=== PATIENT | female | born 1950 | race Caucasian/White ===

== ENCOUNTER 2017-05-03 11:10 | Outpatient (CLI) | payer MEDICARE, BC ==
--- NOTE | 2017-05-11 16:30 | Electroencephalogram ---
DATE OF PROCEDURE: 05/03/2017 ELECTROENCEPHALOGRAPHY REPORT READING PHYSICIAN: Bora Benitez M.D. HISTORY: This is a 66-year-old female with a history of chronic seizure disorder, maintained on phenobarbital. EEG was done using 18 electrodes placed scalp to scalp, scalp to ear montages according to 10/[employer] System. During recording, the patient described as being "alert, good cooperation, and normal mentality." In the predominantly awake stages, background activity consists of well organized at 9 cycles per second medium voltage alpha activities with good response to physiological stimulation. No asymmetry from [id number]. No spike or wave activities noted. Stimulation with hyperventilation resulted in a mild diffuse slowing, photic stimulation from 3 to 32 hertz was done with no significant changes in background. IMPRESSION: Normal awake stage 1 sleep EEG with photic stimulation and hyperventilation. COMMENT: Absence of paroxysmal event on a single recording does not rule out seizure disorder. Boar Benitez M.D. DR: FLORECITA JOB#: [id number] CC:
== END 2017-05-03 13:10 | disposition home or self-care (01) ==
LOC: CAR 11:10
DX: G40.909 Epilepsy, unspecified, not intractable, without status epilepticus (principal)
CPT/HCPCS: 95819